=== PATIENT | female | born 1940 | race Caucasian/White ===

== ENCOUNTER 2017-12-03 21:36 | Observation (INO) | payer MEDICARE, OTHER ==
[2017-12-03 23:37] LABS: ABS Basophils 0.1 10^3/ul (0-0.2); ABS Eosinophils 0.6 10^3/ul (0-0.6); ABS Lymphocytes 2.2 10^3/ul (1.0-4.8); ABS Monocytes 0.6 10^3/ul (0-0.8); ABS Neutrophils 3.5 10^3/ul (1.5-7.7); ABS Nucleated RBC 0 10^3/ul; Eosinophil % 8.1 % (0-6); Hematocrit 39 % (35-47); Hemoglobin 13.5 g/dl (12.0-16.0); Lymphocyte % 31.3 % (25-47); Mean Corpuscular HGB Conc 34 g/dl (31-36); Mean Corpuscular Hemoglobin 33 pg (27-31); Mean Corpuscular Volume 97 fL (80-97); Mean Platelet Volume 7.4 um3 (7.4-10.4); Nucleated Red Blood Cells % 0; Platelet Count 234 10^3/ul (150-450); Red Blood Count 4.06 10^6/ul (4.00-5.40); Red Cell Distribution Width 13 % (10.5-15); White Blood Count 6.9 10^3/ul (3.5-10.8)
[2017-12-03 23:54] LABS: EGFR Non-African American 59.8 (>60)
--- NOTE | 2017-12-04 01:13 | ED ---
Neurological HPI - HPI Summary HPI Summary: 77-year-old female presents with unsteady gait since 7pm today. She states the her feet feel shaky and that she can not place them in the wrong place. She denies any dizziness. No chest pain or shortness breath. She denies any weakness. She denies any change in vision. She is not on blood thinners. She denies any headache. She did not fall. She denies any recent medication change. no pain with urination. She also admits to numbness and tingling in her right thumb only. no weakness. is right handed. No previous history of CVAs. She has history of high cholesterol and asthma. She states that earlier today she walked over 80 stairs with some minimal shortness of breath but had normal gait. She also states that she got back from a train ride that was three days today. She lives alone. - History of Current Complaint Chief Complaint: EDGeneral Stated Complaint: UNSTEADY/WEAKNESS Time Seen by Provider: 12/04/17 00:01 Pain Intensity: 0 - Allergy/Home Medications Allergies/Adverse Reactions: Allergies Allergy/AdvReac Type Severity Reaction Status Date / Time Sulfa (Sulfonamide Allergy Itching Verified 12/03/17 21:41 Antibiotics) Home Medications: Home Medications Atorvastatin Calcium [Lipitor] 40 mg PO DAILY 12/03/17 [History Confirmed ] PMH/Surg Hx/FS Hx/Imm Hx Endocrine/Hematology History: Denies: Hx Anticoagulant Therapy Cardiovascular History: Reports: Hx Hypercholesterolemia Denies: Hx Hypertension Respiratory History: Reports: Hx Asthma Infectious Disease History: No Infectious Disease History: Denies: Traveled Outside the [place] in Last 30 Days - Family History Known Family History: Positive: Other - no fam hx CVA - Social History Alcohol Use: None Substance Use Type: Reports: None Smoking Status (MU): Never Smoked Tobacco Review of Systems Negative: Fever Negative: Chest Pain Negative: Shortness Of Breath Neurological: Other - ataxia All Other Systems Reviewed And Are Negative: Yes Physical Exam Triage Information Reviewed: Yes Vital Signs On Initial Exam: Initial Vitals Temp Pulse Resp BP Pulse Ox 97.6 F 86 18 117/81 100 12/03/17 21:41 12/03/17 21:41 12/03/17 21:41 12/03/17 21:41 12/03/17 21:41 Vital Signs Reviewed: Yes Appearance: Positive: Well-Appearing Skin: Positive: Warm, Dry Head/Face: Positive: Normal Head/Face Inspection Eyes: Positive: Normal, EOMI, FARHAN, Conjunctiva Clear ENT: Positive: Normal ENT inspection, Pharynx normal, TMs normal Respiratory/Lung Sounds: Positive: Clear to Auscultation, Breath Sounds Present Cardiovascular: Positive: Normal, RRR Abdomen Description: Positive: Nontender, Soft Bowel Sounds: Positive: Present Musculoskeletal: Positive: Strength/ROM Intact - upper and lower legs Neurological: Positive: Sensory/Motor Intact, Alert, Oriented to Person Place, Time, CN Intact II-III, Abnormal Gait - unable to walk, wobbles and almost falls backwards when tries to take step, Babinski Bilateral - normal, Heel to Toe, Finger to Nose, Speech Normal. Negative: Pronator Drift Present Psychiatric: Positive: Normal - Johnson Coma Scale Best Eye Response: 4 - Spontaneous Best Motor Response: 6 - Obeys Commands Best Verbal Response: 5 - Oriented Coma Scale Total: 15 Diagnostics - Vital Signs Vital Signs Temp Pulse Resp BP Pulse Ox 12/04/17 00:37 72 16 138/58 98 12/03/17 23:53 65 17 181/81 96 12/03/17 23:52 69 19 97 12/03/17 21:41 97.6 F 86 18 117/81 100 - Laboratory Lab Results: Lab Results 12/03/17 12/03/17 12/03/17 Range/Units 23:29 23:29 23:29 WBC 6.9 (3.5-10.8) 10^3/ul RBC 4.06 (4.00-5.40) 10^6/ul Hgb 13.5 (12.0-16.0) g/dl Hct 39 (35-47) % MCV 97 (80-97) fL MCH 33 H (27-31) pg MCHC 34 (31-36) g/dl RDW 13 (10.5-15) % Plt Count 234 (150-450) 10^3/ul MPV 7.4 (7.4-10.4) um3 Neut % (Auto) 50.7 (38-83) % Lymph % (Auto) 31.3 (25-47) % [place] % (Auto) 8.5 H (0-7) % Eos % (Auto) 8.1 H (0-6) % Baso % (Auto) 1.4 (0-2) % Absolute Neuts (auto) 3.5 (1.5-7.7) 10^3/ul Absolute Lymphs (auto) 2.2 (1.0-4.8) 10^3/ul Absolute Monos (auto) 0.6 (0-0.8) 10^3/ul Absolute Eos (auto) 0.6 (0-0.6) 10^3/ul Absolute Basos (auto) 0.1 (0-0.2) 10^3/ul Absolute Nucleated RBC 0 10^3/ul Nucleated RBC % 0 Sodium 143 (135-145) mmol/L Potassium 4.6 (3.5-5.0) mmol/L Chloride 109 (101-111) mmol/L Carbon Dioxide 28 (22-32) mmol/L Anion Gap 6 (2-11) mmol/L BUN 18 (6-24) mg/dL Creatinine 0.91 (0.51-0.95) mg/dL Est GFR ( Amer) 72.3 (>60) Est GFR (Non-Af Amer) 59.8 (>60) BUN/Creatinine Ratio 19.8 (8-20) Glucose 102 H (70-100) mg/dL Lactic Acid 1.3 (0.5-2.0) mmol/L Calcium 9.6 (8.6-10.3) mg/dL Magnesium 2.2 (1.9-2.7) mg/dL Total Bilirubin 0.30 (0.2-1.0) mg/dL AST 21 (13-39) U/L ALT 20 (7-52) U/L Alkaline Phosphatase 81 (34-104) U/L Total Protein 6.7 (6.4-8.9) g/dL Albumin 4.4 (3.2-5.2) g/dL Globulin 2.3 (2-4) g/dL Albumin/Globulin Ratio 1.9 (1-3) Result Diagrams: 12/03/17 23:29 12/03/17 23:29 Lab Statement: Any lab studies that have been ordered have been reviewed, and results considered in the medical decision making process. - CT brain CT Interpretation: No Acute Changes CT Interpretation Completed By: Radiologist cta CT Interpretation: Positive (See Comments) - left posterior inferior cerebellar artery is not well seen. uncertain if too small to see on this can or is occluded CT Interpretation Completed By: Radiologist NIH Scale - NIH Scale Level of Consciousness: Alert/Keenly Responsive Ask Patient the Month and His/Her Age: Both Correct Ask Pt to Open/Close Eyes and Biochemistry Technologist/Release Non-Paretic Hand: Both Correctly Best Gaze (Only Horizontal Eye Movement): Normal Visual Field Testing: No Visual Loss Facial Paresis-Pt to Smile & Close Eyes or Grimace Symmetry: Normal/Symmetrical Motor Function - Right Arm: No Drift-Holds 10 Seconds Motor Function - Left Arm: No Drift-Holds 10 Seconds Motor Function - Right Leg: No Drift-Holds 10 Seconds Motor Function - Left Leg: No Drift-Holds 10 Seconds Limb Ataxia-Must be out of Proportion to Weakness Present: Absent Sensory (Use Pinprick to Test Arms/Legs/Trunk/Face): Normal Best Language (Describe Picture, Name Items): No Aphasia Dysarthria (Read Several Words): Normal Extinction and Inattention: No Abnormality Total Score: 0 Course/Dx - Course Course Of Treatment: 77-year-old female presents with unsteady gait since 7pm today. She states the her feet feel shaky and that she can not place them in the wrong place. She denies any dizziness. No chest pain or shortness breath. She denies any weakness. She denies any change in vision. She is not on blood thinners. She denies any headache. She did not fall. She denies any recent medication change. no pain with urination. She also admits to numbness and tingling in her right thumb only. no weakness. is right handed. No previous history of CVAs. She has history of high cholesterol and asthma. She states that earlier today she walked over 80 stairs with some minimal shortness of breath but had normal gait. She also states that she got back from a train ride that was three days today. She lives alone. on exam has normal neuro exam. NIH stroke scale normal. able to perform heel to meade. normal strenght lower extremity. neg babsinki. good strength feet. when attempts to walk wobbles and almost falls backwards. she denies any dizziness with this just states feet feel shaky. CT brain and labs wnl. discussed with dr lopez said to talk with hosptialists as patient is out of range for code kincaid. discussed with dr pollard and says to get neurology consult for potential code kincaid. discussed with dr jeffries says that does not sound like stroke. states could be edema vs neuropathy recommends admission to hospitalists. CTA shows no flow into left posterior inferior cerebellar artery and it is not well seen. dr pollard agrees to admit for further work up. - Differential Dx Differential Diagnoses Neuro: Positive: Cerebrovascular Accident, Hemorrhage, Hypoglycemia - Diagnoses Provider Diagnoses: Ataxia Discharge - Sign-Out/Discharge Documenting (check all that apply): Discharge/Admit/Transfer - Discharge Plan Condition: Stable Disposition: ADMITTED TO [facility] Referrals: No Primary Care Phys,NOPCP [Primary Care Provider] - - Billing Disposition and Condition Condition: STABLE Disposition: Admitted to [facility]
[2017-12-04] MEDS ORDERED: Iodixanol* (CONTRAST) 320 MG/ML 100 ML SDV IV ONE (01:22)
[2017-12-04] MEDS ORDERED: Clopidogrel TAB* 75 MG PO SCH (03:00)
[2017-12-04] MEDS ORDERED: NS 0.9% 1000 ML* 1,000 ML IV SCH (03:00)
[2017-12-04] MEDS ORDERED: Albuterol HFA INHALER* 8 gm MDI INH PRN (03:10)
[2017-12-04] MEDS: Heparin VIAL(*) 5000 UNITS/ML VIAL (FIVE THOUSAND) SUBCUT SCH ×2 (06:07→13:34)
--- NOTE | 2017-12-04 07:39 | RAD ---
HISTORY: unsteady gait COMPARISONS: None TECHNIQUE: Multiple contiguous axial CT scans were obtained of the head without intravenous contrast. FINDINGS: HEMORRHAGE/INFARCT: There is no hemorrhage or acute infarct. MASSES/SHIFT: There is no mass or shift. EXTRA-AXIAL SPACES: There are no extra-axial fluid collections. SULCI AND VENTRICLES: The sulci and ventricles are normal in size and position for the patient's stated age. CEREBRUM: There is minimal hypoattenuation of the periventricular and subcortical white matter. BRAINSTEM: There are no focal parenchymal abnormalities. CEREBELLUM: There are no focal parenchymal abnormalities. VESSELS: There is calcification of the cavernous segments of the internal carotid arteries bilaterally and of the distal vertebral arteries bilaterally. PARANASAL SINUSES: There is mucosal thickening of ethmoid air cells and maxillary sinuses bilaterally. ORBITS: The orbits are unremarkable. BONES AND SOFT TISSUE: No bone or soft tissue abnormalities are noted. OTHER: None IMPRESSION: NO ACUTE INTRACRANIAL PATHOLOGY. MINIMAL CHRONIC SMALL VESSEL ISCHEMIC CHANGES.
--- NOTE | 2017-12-04 07:53 | PN ---
Subjective Date of Service: 12/04/17 Interval History: No c/o. She hasn't tried to get OOB since admission. Objective Active Medications: Albuterol (Ventolin Hfa Inhaler*) 1 puff INH Q4H PRN PRN Reason: SOB/WHEEZING Atorvastatin Calcium (Lipitor*) 40 mg PO DAILY [facility] Clopidogrel Bisulfate (Plavix Tab*) 75 mg PO 0900 [facility] Last Admin: 12/04/17 03:02 Dose: 75 mg Docusate Sodium (Colace Cap*) 100 mg PO BID [facility] Heparin Sodium (Porcine) (Heparin Vial(*)) 5,000 units SUBCUT Q8HR [facility] Last Admin: 12/04/17 06:07 Dose: 5,000 units Sodium Chloride (Ns 0.9% 1000 Ml*) 1,000 mls @ 75 mls/hr IV PER RATE [facility] Last Admin: 12/04/17 06:07 Dose: 75 mls/hr Vital Signs - 8 hr 12/03/17 12/03/17 12/03/17 23:52 23:53 23:55 Temperature Pulse Rate 69 65 64 Respiratory 19 17 12 Rate Blood Pressure 181/81 (mmHg) O2 Sat by Pulse 97 96 97 Oximetry 12/04/17 12/04/17 12/04/17 00:00 00:37 00:39 Temperature Pulse Rate 63 72 66 Respiratory 17 16 15 Rate Blood Pressure 138/58 138/58 (mmHg) O2 Sat by Pulse 96 98 98 Oximetry 12/04/17 12/04/17 12/04/17 00:53 01:00 01:22 Temperature Pulse Rate 64 64 66 Respiratory 16 17 19 Rate Blood Pressure 138/56 149/82 (mmHg) O2 Sat by Pulse 97 97 98 Oximetry 12/04/17 12/04/17 12/04/17 01:52 02:00 02:23 Temperature Pulse Rate 67 69 68 Respiratory 16 16 15 Rate Blood Pressure 144/74 129/59 (mmHg) O2 Sat by Pulse 96 97 96 Oximetry 12/04/17 12/04/17 12/04/17 02:53 03:00 03:03 Temperature 97.9 F Pulse Rate 65 69 61 Respiratory 16 12 15 Rate Blood Pressure 158/84 158/84 (mmHg) O2 Sat by Pulse 98 98 98 Oximetry 12/04/17 12/04/17 12/04/17 03:22 03:47 03:50 Temperature 98 F 98 F Pulse Rate 70 69 69 Respiratory 18 17 17 Rate Blood Pressure 128/65 128/65 128/65 (mmHg) O2 Sat by Pulse 95 97 97 Oximetry 12/04/17 12/04/17 12/04/17 03:52 04:00 04:02 Temperature 97.4 F Pulse Rate 67 71 61 Respiratory 22 19 18 Rate Blood Pressure 121/63 149/57 (mmHg) O2 Sat by Pulse 96 94 100 Oximetry 12/04/17 04:22 Temperature Pulse Rate 70 Respiratory 20 Rate Blood Pressure 106/60 (mmHg) O2 Sat by Pulse 97 Oximetry Oxygen Devices in Use Now: None Appearance: Alert, sitting on the edge of her bed. In good spirits. Looks comfortable. Eyes: No Scleral Icterus Respiratory: Symmetrical Chest Expansion and Respiratory Effort, Clear to Auscultation, Clear to Percussion Cardiovascular: NL Sounds; No Murmurs; No JVD, RRR, No Edema, - Extremities: No Edema, No Clubbing, Cyanosis, - Skin: No Rash or Ulcers, No Nodules or Sclerosis, - Neurological: Alert and Oriented x 3, NL Sensation - Moves easily in bed. Speech clear and fluent. No tremor. Result Diagrams: 12/03/17 23:29 12/03/17 23:29 Additional Lab and Data: Lab Results 12/03/17 12/03/17 12/03/17 Range/Units 23:29 23:29 23:29 WBC 6.9 (3.5-10.8) 10^3/ul RBC 4.06 (4.00-5.40) 10^6/ul Hgb 13.5 (12.0-16.0) g/dl Hct 39 (35-47) % MCV 97 (80-97) fL MCH 33 H (27-31) pg MCHC 34 (31-36) g/dl RDW 13 (10.5-15) % Plt Count 234 (150-450) 10^3/ul MPV 7.4 (7.4-10.4) um3 Neut % (Auto) 50.7 (38-83) % Lymph % (Auto) 31.3 (25-47) % [place]ay % (Auto) 8.5 H (0-7) % Eos % (Auto) 8.1 H (0-6) % Baso % (Auto) 1.4 (0-2) % Absolute Neuts (auto) 3.5 (1.5-7.7) 10^3/ul Absolute Lymphs (auto) 2.2 (1.0-4.8) 10^3/ul Absolute Monos (auto) 0.6 (0-0.8) 10^3/ul Absolute Eos (auto) 0.6 (0-0.6) 10^3/ul Absolute Basos (auto) 0.1 (0-0.2) 10^3/ul Absolute Nucleated RBC 0 10^3/ul Nucleated RBC % 0 Sodium 143 (135-145) mmol/L Potassium 4.6 (3.5-5.0) mmol/L Chloride 109 (101-111) mmol/L Carbon Dioxide 28 (22-32) mmol/L Anion Gap 6 (2-11) mmol/L BUN 18 (6-24) mg/dL Creatinine 0.91 (0.51-0.95) mg/dL Est GFR ( Amer) 72.3 (>60) Est GFR (Non-Af Amer) 59.8 (>60) BUN/Creatinine Ratio 19.8 (8-20) Glucose 102 H (70-100) mg/dL Lactic Acid 1.3 (0.5-2.0) mmol/L Calcium 9.6 (8.6-10.3) mg/dL Magnesium 2.2 (1.9-2.7) mg/dL Total Bilirubin 0.30 (0.2-1.0) mg/dL AST 21 (13-39) U/L ALT 20 (7-52) U/L Alkaline Phosphatase 81 (34-104) U/L Total Protein 6.7 (6.4-8.9) g/dL Albumin 4.4 (3.2-5.2) g/dL Globulin 2.3 (2-4) g/dL Albumin/Globulin Ratio 1.9 (1-3) Assess/Plan/Problems-Billing Assessment: - Patient Problems (1) Gait abnormality Current Visit: Yes Status: Acute Code(s): R26.9 - UNSPECIFIED ABNORMALITIES OF GAIT AND MOBILITY SNOMED Code(s): 40290709 Comment: Transient subj abnormality, resolved. ? ischemia vs. peripheral neuropathy. Lack of visualization of L posterior cewrebellar artery of uncertain significance. MRI brain, echo pending. Dr. Dixon to consult. Patient states she takes ASA 81 mg daily. Clopidogrel oredered. (2) Hyperlipidemia Current Visit: Yes Status: Acute Code(s): E78.5 - HYPERLIPIDEMIA, UNSPECIFIED SNOMED Code(s): 81830111 Comment: Continue home dose statin.
--- NOTE | 2017-12-04 07:54 | RAD ---
HISTORY: weakness legs COMPARISONS: Head CT dated December 04, 2017 TECHNIQUE: Multiple contiguous axial CT scans were obtained of the head and neck after the administration of nonionic intravenous contrast timed to the systemic arterial phase of contrast enhancement. Coronal and sagittal multiplanar reformations are submitted for review. Multiple 3-D maximum intensity projection reconstructions are also submitted for review. FINDINGS: CTA NECK: AORTIC ARCH: The aortic arch is not completely visualized within the [id number] the current examination. There is no proximal stenosis of the cephalic great vessels. RIGHT VERTEBRAL ARTERY: There is atherosclerosis of the V4 segment, without stenosis. LEFT VERTEBRAL ARTERY: There is atherosclerosis of the V4 segment, without stenosis. DOMINANCE: The right vertebral artery is dominant. RIGHT COMMON CAROTID ARTERY: The right common carotid artery is patent. The right carotid bifurcation occurs at C4-C5 RIGHT INTERNAL CAROTID ARTERY: There is no right internal carotid artery stenosis by NASCET criteria. RIGHT EXTERNAL CAROTID ARTERY: The right external carotid artery is unremarkable. LEFT COMMON CAROTID ARTERY: The left common carotid artery is patent. The left carotid bifurcation occurs at C4-C5 LEFT INTERNAL CAROTID ARTERY: There is atheromatous disease of the left carotid bifurcation, without left internal carotid artery stenosis by NASCET criteria. LEFT EXTERNAL CAROTID ARTERY: The left external carotid artery is unremarkable. VENOUS CIRCULATION: The venous system is unremarkable. SALIVARY GLANDS: The parotid glands, submandibular glands, sublingual glands are normal. NASAL CAVITY/NASOPHARYNX: The nasal cavity and nasopharynx are normal. ORAL CAVITY/OROPHARYNX: The oral cavity is obscured by streak artifact from dental amalgam. The visualized oral cavity and oropharynx are unremarkable. LARYNGEAL APPARATUS/HYPOPHARYNX: The laryngeal apparatus and hypopharynx are normal. UPPER AIRWAY/UPPER ESOPHAGUS: The visualized upper airway and esophagus are normal. LUNG APICES: The lung apices are clear. THYROID GLAND: The thyroid gland is normal. LYMPH NODES: There is no lymphadenopathy by size criteria. BONES AND SOFT TISSUES: Degenerative changes are noted most pronounced at C5-C6. CTA HEAD: INTRACRANIAL CIRCULATION: The posterior inferior cerebellar arteries are identified. There is an extradural origin of the right PICA. There is attenuation of the left posterior cerebral artery, distal to the P2 segment. Elsewhere, there is no aneurysm, vascular malformation, occlusion, or stenosis of the visualized intracranial circulation.. The anterior communicating artery complex is clear. Bilateral posterior communicating arteries are identified. VENOUS CIRCULATION: The venous system is unremarkable. PERFUSION: There is no obvious parenchymal perfusion deficit. HEMORRHAGE/INFARCT: There is no hemorrhage or acute infarct. MASSES/SHIFT: There is no mass or shift. EXTRA-AXIAL SPACES: There are no extra-axial fluid collections. SULCI AND VENTRICLES: The sulci and ventricles are normal in size and position for the patient's stated age. CEREBRUM: There are no focal parenchymal abnormalities. BRAINSTEM: There are no focal parenchymal abnormalities. CEREBELLUM: There are no focal parenchymal abnormalities. PARANASAL SINUSES: There is mucosal thickening of the maxillary sinuses and ethmoid air cells. ORBITS: The orbits are unremarkable. BONES AND SOFT TISSUE: No bone or soft tissue abnormalities are noted. OTHER: There is no abnormal enhancement. IMPRESSION: 1. ATHEROSCLEROSIS. 2. NO INTERNAL CAROTID ARTERY STENOSIS BY NASCET CRITERIA. 3. THERE IS ATTENUATION OF THE LEFT POSTERIOR CEREBRAL ARTERY, SUGGESTIVE OF STENOSIS. THERE IS NO APPRECIABLE PERFUSION DEFECT. 4. ELSEWHERE, THERE IS NO ANEURYSM, VASCULAR MALFORMATION, OCCLUSION, OR STENOSIS OF THE INTRACRANIAL CIRCULATION. CPT II Codes: 3100F
[2017-12-04] MEDS ORDERED: Atorvastatin* 40 MG TAB PO SCH ×2 (09:00→20:00)
[2017-12-04] MEDS ORDERED: Docusate CAP* 100 MG PO SCH (09:00)
--- NOTE | 2017-12-04 10:25 | ECHO ---
Patient: JOANN SILVER [facility] Rec#: [id number] : 1940 Date: 12/04/2017 Age: 77y Height: 160.02 cm / 63.0 in Weight: 64.41 kg / 142.0 lbs Sex: F BSA: 1.67 Room#: [facility] Admit Date#: 12/04/2017 Type: Inpatient Referring: Arielle Peoples MD Reading: Radha Teran MD Sleeve Ironer: Lakshmi Santana RDCS Transthoracic Echocardiogram Indication: CVA BP: 106/60 HR: 59 Rhythm: Bradycardia Findings History: Hyperlipidemia and asthma. Technical Comments: The study quality is fair. Completed at 0900. Left Ventricle: The left ventricular chamber size is normal. Mild concentric left ventricular hypertrophy is observed. Global left ventricular wall motion and contractility are within normal limits. There is normal left ventricular systolic function. The estimated ejection fraction is 55-60%. There is no consistent Doppler evidence of clinically significant diastolic dysfunction. Left Atrium: The left atrial chamber size is normal. Right Ventricle: Moderator Band present. The right ventricular cavity size is normal. The right ventricular global systolic function is low normal. Right Atrium: The right atrial cavity size is normal. Interatrial septum appears intact without evidence of shunting. The bubble study is negative. A patent foramen ovale is not demonstrated with color Doppler and agitated contrast. Aortic Valve: The aortic valve is trileaflet. The aortic valve leaflets are mildly thickened. There is trace to mild aortic regurgitation. There is no evidence of aortic stenosis. Mitral Valve: The mitral valve leaflets are mildly thickened. There is a trace of mitral regurgitation. There is no evidence of mitral stenosis. Tricuspid Valve: The tricuspid valve leaflets are normal. There is trace to mild tricuspid regurgitation. The right ventricular systolic pressure is estimated at 24 mmHg. No pulmonary hypertension is noted. There is no tricuspid stenosis. Pulmonic Valve: The pulmonic valve structure is not well visualized. There is a trace pulmonic regurgitation. There is no pulmonic stenosis. Pericardium: There is no significant pericardial effusion. A pericardial fat pad is visualized. Aorta: There is no dilatation of the ascending aorta. There is no dilatation of the aortic arch. The aortic root is normal in size. Pulmonary Artery: The main pulmonary artery is not well visualized. Venous: The inferior vena cava appears normal in size. There is a greater than 50% respiratory change in the inferior vena cava dimension. Contrast: Normal saline was used as contrast for the bubble study. Images 2 and 3. Intravenous contrast was used to help determine presence of intracardiac shunting. Summary: There was not any prior study for comparison. Conclusions The left ventricular chamber size is normal. Mild concentric left ventricular hypertrophy is observed. The estimated ejection fraction is 55-60%. A patent foramen ovale is not demonstrated with color Doppler and agitated contrast. There is trace to mild aortic regurgitation. There is a trace of mitral regurgitation. There is trace to mild tricuspid regurgitation. There is a trace pulmonic regurgitation. Measurements Name Value Normal Range RVIDd (AP) 2D 2.9 cm (0.9 - 2.6) RVDdMajor (2D) 3.6 cm (2.2 - 4.4) RAd ISD 4CH 4.7 cm (3.4 - 4.9) RA (A4C)W 3.3 cm (2.9 - 4.6) IVSd (2D) 1.1 cm (0.6 - 1) LVPWd (2D) 1.1 cm (0.6 - 1) LVIDd (2D) 3.9 cm (3.6 - 5.4) LVIDs (2D) 2.4 cm - LV FS (2D) 37 % (25 - 45) Aortic Annulus 1.8 cm (1.4 - 2.6) Ao root diameter (2D) 3.2 cm (2.1 - 3.5) Ascending Ao 3 cm (2.1 - 3.4) Aortic arch 2.1 cm (1.8 - 3.4) LA dimension (AP) 2D 3 cm (2.3 - 3.8) LAd ISD 4CH 4.5 cm (2.9 - 5.3) LA ISD 4CH W 3.9 cm (2.5 - 4.5) Name Value Normal Range LA ESV SP 4CH (A/L) 41 ml - LA ESV SP 2CH (A/L) 49 ml - LA ESV BP (A/L) 47 ml - LA ESV BP (A/L) index 28 ml/m2 - LA ESV SP 4CH (MOD) 36 ml - LA ESV SP 2CH (MOD) 44 ml - Name Value Normal Range MV E-wave Vmax 0.82 m/sec - MV deceleration time 189 msec - MV A-wave Vmax 0.98 m/sec - MV E:A ratio 0.83 ratio - LV septal e' Vmax 0.08 m/sec - LV lateral e' Vmax 0.07 m/sec - LV E:e' septal ratio 10.25 ratio - LV E:e' lateral ratio 11.71 ratio - Name Value Normal Range AV Vmax 1.2 m/sec - AV VTI 30.36 cm - AV peak gradient 6.08 mmHg - AV mean gradient 2.96 mmHg - LVOT Vmax 0.94 m/sec - LVOT VTI 22.92 cm - LVOT peak gradient 3.56 mmHg - LVOT mean gradient 1.81 mmHg - ALEA Vmax 0.56 m/sec - Name Value Normal Range TR Vmax 2.3 m/sec - TR peak gradient 21 mmHg - RAP 3 mmHg - RVSP 24 mmHg - IVC diameter 0.7 cm - Name Value Normal Range PV Vmax 0.81 m/sec - PV peak gradient 2.65 mmHg -
--- NOTE | 2017-12-04 10:32 | HP ---
HISTORY AND PHYSICAL: DATE OF ADMISSION: 12/04/17. PRIMARY CARE PROVIDER: None locally. CHIEF COMPLAINT: Unsteady gait. HISTORY OF PRESENT ILLNESS: Maria Ines Dewitt is a 77-year-old female with history of dyslipidemia and arrived to [place] from [place], [place] three days prior to her presentation to the emergency department from unsteady gait. The patient stated that unsteady gait developed all of a sudden when she was walking up the stairway at 8.00 p.m. on 12/03/17. She came in to the hospital for evaluation. Here, she noted to be ataxic. She is going to be placed on overnight observation with a diagnosis of possible stroke as the source of her ataxia. PAST MEDICAL HISTORY: 1. History of dyslipidemia. 2. History of asthma. 3. History of hysterectomy. MEDICATIONS: Include: 1. Lipitor 40 mg daily. 2. Aspirin 81 mg daily. 3. Albuterol inhaler on a p.r.n. basis. ALLERGIES: SULFA. FAMILY HISTORY: Father with history of heart disease, at the age of 75 of heart disease and mother suddenly at the age of 85 possibly due to stroke. SOCIAL HISTORY: The patient denies any tobacco, alcohol, or drug use. Her surrogate decision maker is her son, Hong Dewitt. She is a full code. She arrived to [place] to spend vacation with her family. REVIEW OF SYSTEMS: Please see history of present illness. The patient stated that apart from unsteady gait, she had a transient numbness in the right thumb that resolved. She still continues to have problems with unsteady gait. She denies any blurry vision or headache. She has not had any recent illnesses. She had been afebrile. No urinary symptoms noted. She denies any nausea, vomiting or abdominal pain. All the remaining 12 systems were reviewed with the patient and were otherwise negative. PHYSICAL EXAMINATION GENERAL: The patient is a very pleasant 77-year-old female, who is in no acute distress. Alert, awake, and oriented x3. VITAL SIGNS: Blood pressure of 158/84, heart rate of 61 and regular, respiratory rate 16, oxygen saturation 98% on room air, temperature 97.9. HEENT: Head: Atraumatic, normocephalic. Eyes: Pupils are equal, reactive to light and accommodation. Oropharynx clear. Mucosa moist. NECK: Supple. No JVD. No bruits bilaterally. RESPIRATORY: Clear to auscultation bilaterally. CARDIOVASCULAR: Regular rate and rhythm. No murmur. ABDOMEN: Soft, nontender. Bowel sounds are present in all 4 quadrants. EXTREMITIES: There is no edema. Pulses +2 bilaterally. There is no clubbing or cyanosis. NEUROLOGIC: Speech clear. Cranial nerves II through XII are grossly intact. Motor strength is 5/5 bilaterally. The patient does not have a pronator drift. Her dirncz-lm-pgic is not dysmetric bilaterally. Her wyql-ki-ndnp is dysmetric on the left side. Babinski sign negative bilaterally. The patient has a wide unsteady gait and her Romberg is positive. PSYCHIATRIC EVALUATION: Oriented x3 with no evidence of anxiety or depression. DIAGNOSTIC STUDIES/LAB DATA: White blood cell count of 6.9, hemoglobin of 13.5 , hematocrit of 39, and platelets of 134. Sodium was 143, potassium 4.6, chloride 109, carbon dioxide 28, BUN 18, creatinine 0.91. The patient's EKG showed normal sinus rhythm with no significant ST changes. CT angiogram of the head and neck preliminary report showed the posterior inferior cerebellar artery is not well visualized. Uncertain if this is too small to see on the scan or is it occluded. Correlate with any symptoms related to the left cerebellum. ASSESSMENT AND PLAN: 1. A sudden-onset ataxia in the patient who has a possibility of occlusion of posterior inferior cerebellar artery. At this point, the patient is going to be placed on overnight observation. Physical therapy and occupational therapy will evaluate the patient. We will continue neuro-checks every 2 hours. Due to that that she had been already on aspirin at home, we will place the patient on Plavix. An MRI of the brain is going to be obtained in the morning. I will also obtain echocardiogram with a bubble study as well as fasting lipid profile. I will ask Dr. Dixon to see the patient in consultation in the morning from neurology standpoint. 2. For patient's dyslipidemia, the patient's atorvastatin is going to be continued and I will obtain fasting lipid profile to evaluate further. 3. In regards to the patient's asthma, this is not in exacerbation. We will continue albuterol inhaler on an as-needed basis. 4. For DVT prophylaxis, the patient is going to be placed on heparin subcutaneously. 5. Code status is full and her surrogate is her son. TIME SPENT: Approximately 68 minutes was spent on admission of this patient, more than half of that time was spent [id number] with the patient during the interview and physical exam. [id number]/[facility] #: [id number] FEROZ
--- NOTE | 2017-12-04 16:20 | RAD ---
Indication: Stroke, ataxia. Sagittal and axial T1, axial T2, FLAIR, diffusion and susceptibility weighted images of the brain were obtained. Ventricular structures are midline. No midline shift is noted. Periventricular signal abnormalities consistent with chronic ischemic White matter change is noted. No evidence of susceptibility artifact is noted. Diffusion-weighted images demonstrates no restriction of diffusion. Mucosal thickening of the ethmoid air cells and maxillary sinuses are noted. This likely represents chronic sinusitis. Mastoid air cells are unremarkable. IMPRESSION: Chronic white matter change. No restriction of diffusion is noted. Chronic sinusitis is noted.
[2017-12-04 18:19] VITALS: BP 129/64
--- NOTE | 2017-12-05 03:57 | CONS ---
CC: Shaun Martin MD, [place], [place], [facility] * NEUROLOGY CONSULTATION: DATE OF CONSULT: 12/04/17 REQUESTING PROVIDER: Arielle Peoples MD REASON FOR CONSULT: Ataxic gait. HISTORY OF PRESENT ILLNESS: Maria Ines Dewitt is a 77-year-old woman with a history of hyperlipidemia as well as asthma, who came in last night with unsteady gait. Her sons report that they were having dinner yesterday evening when she got up from the table and suddenly was unable to walk normally. She states that it was as though her feet would not go in the right places. She thinks this was bilateral. When she arrived here, she had difficulty signing her name with her right hand as well. Her symptoms were improving somewhat and on the NIH stroke scale, her score was 0 and so she was not given tPA and was admitted for further workup. She thinks that her symptoms improved to a great deal last night and then further improved this morning. Her gait is now essentially back to her baseline. Since her admission, she has undergone CT scan of the brain as well as CTA and MRI scan. PAST MEDICAL HISTORY: 1. Hyperlipidemia. 2. Asthma. 3. Hysterectomy. HOME MEDICATIONS: 1. Lipitor 40 mg daily. 2. Aspirin 81 mg daily. 3. Albuterol as needed. 4. Multivitamin. 5. Calcium with vitamin D. ALLERGIES: SULFA. FAMILY HISTORY: Her father had heart disease and mother secondary to a stroke. SOCIAL HISTORY: She is a nonsmoker. Does not drink alcohol and does not use any drugs. She is from [place], [place] and arrived here a day and a half ago after a 2-day train ride. REVIEW OF SYSTEMS: She did have some transient numbness in her right hand as well at the time of the onset of these symptoms, but that had resolved shortly thereafter. She denies any chest pain, palpitations, breathing difficulties, lower extremity swelling, rashes, joint pains. Otherwise as per the HPI. PHYSICAL EXAM: Vital Signs: Temperature 97.4, blood pressure 129/64, heart rate 72, oxygen saturation 99% on room air. On general exam, she is a pleasant woman, in no acute distress. Her heart is in a regular rate and rhythm with no murmurs, rubs, or gallops. Lungs are clear to auscultation bilaterally. She has no lower extremity edema. On neurologic examination, she is fully awake and alert and oriented to the month and the year, but stated the date was the . Her speech is fluent without dysarthria or aphasia. Pupils are equal, round, and reactive from 4 to 2 mm. Versions are full without nystagmus, but she initially had some difficulty with tracking a finger, looking at the examiner instead. Carias are full to confrontation. Facial sensation and musculature is full and symmetric. Hearing is intact to voice. Palate elevates symmetrically and the tongue is midline. On motor examination, she has full strength in the upper and lower extremities with no pronator drift. Sensation is intact to light touch in the upper and lower extremities. Reflexes are 2+ throughout. Rpsrys-jf-hfyl and heel-to- meade are intact without ataxia. Her gait is narrow based with short steps, but her family says this is her baseline. She appears a little bit cautious, but not unsteady. DIAGNOSTIC STUDIES/LAB DATA: Her CBC was reviewed and is unremarkable. Her chemistry panel also reviewed and unremarkable. Triglycerides 64, cholesterol 138, LDL of 69, HDL 56.4. Her transthoracic echocardiogram showed an ejection fraction of 55% to 60% with mild LVH. The bubble study is negative. I reviewed her CT scan which shows no evidence of any acute process. There are some minor calcifications in the right basal ganglia and calcifications in the intracranial portions of the internal carotid arteries as well vertebral arteries. She has minimal small vessel disease. Her CT angio of the head and neck showed atherosclerotic disease, but no hemodynamically significant stenosis. There was stenosis of the left posterior cerebral artery, but no obvious occlusion. Her MRI scan of the brain was personally reviewed and shows no evidence for restricted diffusion. She has some evidence of small vessel disease in the cerebral hemispheres. IMPRESSION AND PLAN: Maria Ines Dewitt is a 77-year-old woman with a history of hyperlipidemia, who came in with a transient episode of gait ataxia, most likely a transient ischemic attack. Her CT angiogram showed evidence of atherosclerosis, but no areas of significant stenosis. Her cholesterol is at goal. Overall, her blood pressures looked reasonable, but she did have some elevations initially as high as 181/81 as one solitary reading and then some readings in the 150s. As an outpatient when she is home back in [place], this should be followed up to determine whether she has any hypertension which requires further intervention. We will change her over from aspirin to clopidogrel and a prescription was sent in for this. When she flies home in about 5 days or so, she was encouraged to make sure that she does some foot exercises when she is seated and also gets up and walks around as long as she feels safe to do so. She was encouraged to follow up with her primary care physician when she returns to [place] and perhaps would benefit from an outpatient consultation with a neurologist for this episode as well to be sure that all of her risk factors are being appropriately addressed. Thank you for this consultation. From a neurologic perspective, Ms. Dewitt is stable for discharge today. [id number]/[facility] #: [id number] FEROZ
[2017-12-05] MEDS ORDERED: Aspirin 81 mg CHEW TAB* 81 MG TAB.CHEW PO SCH (09:00)
--- NOTE | 2017-12-05 11:59 | DS ---
DISCHARGE SUMMARY: DATE OF ADMISSION: 12/04/17 DATE OF DISCHARGE: 12/05/17 HISTORY OF PRESENT ILLNESS/HOSPITAL COURSE: This 77-year-old woman presented with a history of unste leela gait. This started at 8 p.m. on 12/03/17. At the hospital on 12/04/17, she was noted to be atax ic. Overnight, she recovered completely. She was seen in consultation by Dr. Dixon. She had an MRI scan, which did not show any evidence of stroke or other significant lesion. There were chronic whi te matter changes. The patient was also evaluated with an echocardiogram, which was unremarkable. H ad a brain CT scan. The CTA showed attenuation of the left posterior cerebellar artery, this could b e compatible with stenosis, but there was no perfusion defect. The patient was started on clopidogrel. She will continue on aspirin for 3 weeks and then continue o n only monotherapy with clopidogrel after that. FINAL DIAGNOSES: 1. Transient ischemic attack. 2. Hyperlipidemia. DISCHARGE MEDICATIONS: 1. Clopidogrel 75 mg daily. 2. Aspirin 81 mg daily for 3 weeks. 3. Atorvastatin 40 mg daily. [id number]/[facility] #: [id number]
== END 2017-12-05 08:05 | disposition home or self-care (01) ==
LOC: ED 21:36 → MEDTELE 12-04 02:50
PROVIDERS: ADMIT Internal Medicine; ATTEND Internal Medicine
DX: G45.9 Transient cerebral ischemic attack, unspecified (principal); E78.5 Hyperlipidemia, unspecified; Z79.82 Long term (current) use of aspirin; Z79.899 Other long term (current) drug therapy; Z88.2 Allergy status to sulfonamides; J45.909 Unspecified asthma, uncomplicated; E78.00 Pure hypercholesterolemia, unspecified
CPT/HCPCS: 36415; 70450; 70496; 70498; 70551; 80053; 80061; 83605; 83735; 85025; 93005; 93306; 96372; 99284; A9270-GY; G0378; J1644; Q9967